=== PATIENT | female | born 1995 | race American Indian/Alaskan Native ===

== ENCOUNTER 2020-02-28 11:45 | Emergency (ER) | payer BC, OTHER ==
[~2020-02-28] VITALS: Ht 170.2 cm; Wt 56.0 kg
[~2020-02-28 11:45] MED LIST: CIP500T PO; FAMO20TA44 PO; HYDR-4383 PO; OMEP20CA15 PO; ONDA4TAB6 PO; ONDA8TAB6 PO; SUCR1ORA2 PO
[2020-02-28] MEDS ORDERED: famotidine/PF 10 mg/ml inj IV ONE (12:05)
[2020-02-28] MEDS ORDERED: normal saline 1000ML IV soln IVB ONE (12:05)
[2020-02-28] MEDS ORDERED: ondansetron/PF 4mg/2ml inj IV ONE (12:05)
[2020-02-28 12:22] LABS: URINE HCG NEGATIVE (NEG)
[2020-02-28 12:22] LABS: BASOPHILS % (AUTO) 0.3 % (0-1); EOSINOPHILS % (AUTO) 0 % (0-6); HEMATOCRIT 43.1 % (35.0-45.0); HEMOGLOBIN 14.4 g/dl (12.0-16.0); LYMPHOCYTES # (AUTO) 0.5 X10'3 (1.1-4.8); LYMPHOCYTES % (AUTO) 2.8 % (21-51); MEAN CORPUSCULAR HEMOGLOBIN 29.7 PG (27.0-31.0); MEAN CORPUSCULAR HGB CONC 33.3 g/dL (33.0-36.5); MEAN CORPUSCULAR VOLUME 89.2 FL (78-98); MEAN PLATELET VOLUME 8.8 FL (7.4-10.4); MONOCYTES # (AUTO) 0.4 X10'3 (0-0.9); MONOCYTES % (AUTO) 2.5 % (2-12); NEUTROPHILS # (AUTO) 15.4 X10'3 (1.8-7.7); NEUTROPHILS % (AUTO) 94.4 % (42-75); PLATELET COUNT 285 X10'3 (140-440); RED BLOOD COUNT 4.83 X10'6 (4.20-5.60); RED CELL DISTRIBUTION WIDTH 12.9 % (11.5-14.5); WHITE BLOOD COUNT 16.3 X10'3 (4.5-11.0)
[2020-02-28 12:23] LABS: CLARITY,URINE SLIGHTLY CLOUDY (Clear); COLOR,URINE YELLOW (Yellow); GLUCOSE, URINE NEGATIVE (Neg); KETONES,URINE 40 mg/dl (Neg); LEUKOCYTE ESTERASE ,URINE NEGATIVE (Neg); NITRITES, URINE NEGATIVE (Neg); OCCULT BLOOD,URINE TRACE-LYSED (Neg); PH,URINE 5.5 (4.8-8.0); PROTEIN,URINE 100 mg/dl (Neg); UROBILINOGEN,URINE 0.2 E.U/dL (0.2-1.0)
[2020-02-28 12:33] LABS: ALANINE AMINOTRANSFERASE 34 U/L (12-78); ALBUMIN 4.7 G/DL (3.4-5.0); ALBUMIN/GLOBULIN RATIO 1.3 (1.1-1.5); ALKALINE PHOSPHATASE 63 IU/L (46-116); AMYLASE 114 U/L (25-115); ANION GAP 13 (8-16); ASPARTATE AMINO TRANSFERASE 47 U/L (10-37); BILIRUBIN,TOTAL 0.4 MG/DL (0.1-1.0); BLOOD UREA NITROGEN 20 MG/DL (7-18); BUN/CREATININE RATIO 19.2 (6.6-38.0); CALCIUM 9.2 MG/DL (8.5-10.1); CHLORIDE 106 MMOL/L (99-107); CREATININE 1.04 MG/DL (0.40-0.90); GLUCOSE 103 MG/DL (70-104); LIPASE 126 U/L (73-393); POTASSIUM 3.9 MMOL/L (3.5-5.1); SODIUM 142 MMOL/L (135-145); TOTAL CARBON DIOXIDE 23.2 MMOL/L (24-32); TOTAL PROTEIN 8.2 G/DL (6.4-8.2); eGFR 64 ML/MIN
[2020-02-28 12:38] LABS: UA COLLECTION TYPE CLN CATCH MIDSTREAM
[2020-02-28 12:40] LABS: SQUAMOUS EPITHELIAL CELL,UR MANY /LPF (FEW)
[2020-02-28 12:41] LABS: AMORPHOUS URATES 1+
[2020-02-28 12:42] LABS: BACTERIA,URINE FEW /HPF (Neg); RBC,URINE 0-2 /HPF (0-2); WBC,URINE 0-4 /HPF (0-4)
[2020-02-28 12:43] LABS: YEAST FEW /HPF (NEGATIVE)
[2020-02-28] MEDS ORDERED: iohexol 300mg/ml 100ml inj. ONE (12:47)
--- NOTE | 2020-02-28 13:18 | NUR ---
pt to ct
[2020-02-28] MEDS ORDERED: DICY10CA88 PO (13:50)
[2020-02-28] MEDS ORDERED: ONDA4TAB6 PO (13:50)
[2020-02-28 14:04] VITALS: BP 130/59
== END 2020-02-28 14:05 | disposition home or self-care (01) ==
LOC: ER 11:46
DX: A08.4 Viral intestinal infection, unspecified (principal); R11.2 Nausea with vomiting, unspecified; R10.13 Epigastric pain; R19.7 Diarrhea, unspecified; F12.90 Cannabis use, unspecified, uncomplicated; Z79.899 Other long term (current) drug therapy
CPT/HCPCS: 36415; 74177; 80053; 81001; 81025; 82150; 83690; 85025; 96361; 96374; 96375; 99285; J2405; J3490; J7030; Q9967